=== PATIENT | female | born 1995 | race Caucasian/White ===

== ENCOUNTER 2018-08-15 03:33 | Emergency (ER) | payer BC ==
[~2018-08-15] VITALS: Ht 170.2 cm; Wt 61.2 kg
--- NOTE | 2018-08-15 03:36 | NUR ---
Danny jim in [facility] - 08/15/18 at 0422 by SHADY Patient discharged to home in stable condition. Written and verbal after care instructions given. Patient verbalizes understanding of instruction.
--- NOTE | 2018-08-15 03:45 | NUR ---
BIBSELF C/O L SIDE FLANK PAIN X 2 HOURS. DENIES N/V/D. PT AMBULATED TO BED WITH A STEADY GAIT. PT PLACED IN COMFORTABLE POSITION. PT PLACED ON MONITOR WITH VS WNL. PT YELLING AND BECOMING VERY AGITATED C/O SEVERE PAIN. AWAITING MD DA SILVA.
[2018-08-15] MEDS ORDERED: KETOROLAC TROMETHAMINE INJ 30 MG/ML VIAL IV ONE ×2 (04:00→08:00)
[2018-08-15] MEDS ORDERED: IV NS 0.9% 1,000 ML BAG IV ONE (04:00)
[2018-08-15] MEDS ORDERED: HYDROCODONE/APAP 5/325MG 1 EACH TABLET PO ONE (04:00)
[2018-08-15] MEDS ORDERED: ONDANSETRON HCL/PF 4 MG/2 ML VIAL IVP ONE (04:00)
[2018-08-15] MEDS ORDERED: ONDANSETRON HCL/PF 4 MG/2 ML VIAL ONE ×2 (04:06→06:46)
[2018-08-15] MEDS ORDERED: KETOROLAC TROMETHAMINE 15 MG/ML VIAL ONE ×2 (04:06→07:46)
[2018-08-15 04:10] LABS: BASOPHILS % (AUTO) 0.5 % (0.0-2.0); EOSINOPHILS % (AUTO) 1.7 % (0.0-6.0); HEMATOCRIT 38 % (33-45); HEMOGLOBIN 12.8 g/dL (11.5-14.8); LYMPHOCYTES # (AUTO) 2.9 /CMM (0.8-4.8); LYMPHOCYTES % (AUTO) 38.7 % (20.0-44.0); MEAN CORPUSCULAR HGB CONC 34 g/dl (31.0-36.0); MEAN CORPUSCULAR VOLUME 91 fL (82-100); MONOCYTES # (AUTO) 0.5 /CMM (0.1-1.30); NEUTROPHILS % (AUTO) 52.1 % (43.0-81.0); PLATELET COUNT (AUTO) 198 /CMM (150-450); RED BLOOD CELL COUNT(AUTO) 4.22 MIL/uL (4.0-5.2); WHITE BLOOD COUNT (AUTO) 7.6 K/uL (4.3-11.0)
[2018-08-15] MEDS ORDERED: HYDROCODONE/APAP 5/325MG 1 EACH TABLET ONE (04:13)
[2018-08-15 04:23] LABS: BILIRUBIN,DIRECT 0.1 mg/dL (0.0-0.2); BILIRUBIN,TOTAL 0.2 mg/dL (0.2-1.0); CALCIUM, SERUM 9.4 mg/dL (8.5-10.1); POTASSIUM 3.2 mmol/L (3.5-5.1); TOTAL PROTEIN, SERUM 7.3 g/dL (6.4-8.2)
[2018-08-15] MEDS ORDERED: MORPHINE SULFATE INJ 2 MG/ML DISP.SYRIN IV ONE ×2 (05:00→08:00)
[2018-08-15] MEDS ORDERED: MORPHINE SULFATE INJ 4 MG/ML DISP.SYRIN ONE (05:01)
[2018-08-15 05:06] LABS: APPEARANCE,URINE CLOUDY (CLEAR); BILIRUBIN,URINE NEGATIVE (NEGATIVE); BLOOD, URINE NEGATIVE Ery/uL (NEGATIVE); COLOR,URINE YELLOW (YELLOW); KETONES,URINE NEGATIVE (NEGATIVE); LEUKOCYTE ESTERASE ,URINE NEGATIVE (NEGATIVE); NITRITE, URINE NEGATIVE (NEGATIVE); PH,URINE 5.5 (5.0-8.0); PROTEIN,URINE NEGATIVE (NEGATIVE); UGLUCOSE NEGATIVE (NEGATIVE); UROBILINOGEN,URINE 0.2 EU/dL (0.2)
[2018-08-15 05:21] LABS: BACTERIA,URINE Few /HPF (None Seen); RBC,URINE 0-2 /HPF (0-2); SQUAMOUS EPITHELIAL CELL,UR Few /HPF (None Seen)
--- NOTE | 2018-08-15 05:30 | NUR ---
PT TAKEN TO CT SCAN.
--- NOTE | 2018-08-15 05:40 | NUR ---
PT RETURNED FROM CT SCAN
[2018-08-15] MEDS ORDERED: ONDANSETRON HCL/PF - ER 4 MG/2 ML VIAL IV ONE (07:00)
--- NOTE | 2018-08-15 07:20 | NUR ---
ENDORSED REPORT TO TUTU CHASE FOR CONTINUITY OF CARE.
--- NOTE | 2018-08-15 07:22 | NUR ---
RECEIVED REPORT FROM JULIUS CORDERO FOR MAURICIO. PT IS AAOX4, NOT IN RESPIRATORY DISTRESS, V/S STABLE.
--- NOTE | 2018-08-15 07:42 | NUR ---
PT REPORTED AGAIN OF ABDOMINAL PAIN AND NAUSEA/VOMITTING, DR. CARRENO AWARE.
--- NOTE | 2018-08-15 07:42 | NUR ---
Danny jim in [facility] - 08/15/18 at 0804 by AMBAR PT REPORTED PAIN OF
[2018-08-15] MEDS ORDERED: METOCLOPRAMIDE HCL 10 MG/2 ML VIAL ONE (07:47)
[2018-08-15] MEDS ORDERED: MORPHINE SULFATE INJ 10 MG/ML DISP.SYRIN ONE (07:58)
[2018-08-15] MEDS ORDERED: IV NS 0.9% 1,000 ML IV ONE (08:00)
[2018-08-15] MEDS ORDERED: METOCLOPRAMIDE HCL 10 MG/2 ML VIAL IV ONE (08:00)
--- NOTE | 2018-08-15 08:47 | NUR ---
IV removed. Catheter intact and site benign. Pressure and 4x4 applied to site. No bleeding noted. Patient discharged to home in stable condition. Written and verbal after care instructions given. Patient verbalizes understanding of instruction.
[2018-08-15 08:48] VITALS: BP 138/81
== END 2018-08-15 08:50 | disposition home or self-care (01) ==
LOC: ER 03:37
DX: N13.2 Hydronephrosis with renal and ureteral calculous obstruction (principal); R11.2 Nausea with vomiting, unspecified
CPT/HCPCS: 36415; 80048-TC; 80076-TC; 81000-TC; 83690-TC; 84703-TC; 85025-TC; J1885; J2270; J2405; J2765; J7030